=== PATIENT | female | born 1985 | race Caucasian/White ===

== ENCOUNTER 2017-09-30 15:59 | Emergency (ER) | payer OTHER ==
[~2017-09-30] VITALS: Ht 160 cm; Wt 81.6 kg
== END 2017-09-30 20:38 | disposition home or self-care (01) ==
LOC: ER 15:59
DX: O03.9 Complete or unspecified spontaneous abortion without complication (principal); K52.9 Noninfective gastroenteritis and colitis, unspecified; E86.0 Dehydration

== ENCOUNTER → 2017-10-03 | Emergency (ER) | payer OTHER ==
[~2017-10-03] VITALS: Ht 160 cm; Wt 81.6 kg
== END | disposition home or self-care (01) ==
LOC: ER 05:07
DX: O03.9 Complete or unspecified spontaneous abortion without complication (principal)

== ENCOUNTER 2018-02-07 12:03 | Emergency (ER) | payer OTHER ==
[~2018-02-07] VITALS: Ht 160 cm; Wt 81.6 kg
== END 2018-02-07 18:43 | disposition home or self-care (01) ==
LOC: ER 12:03
DX: O20.0 Threatened abortion (principal)

== ENCOUNTER 2019-06-23 18:02 | Emergency (ER) | payer OTHER ==
[~2019-06-23] VITALS: Ht 160 cm; Wt 85.7 kg
[2019-06-23] MEDS ORDERED: METROGEL-VAGINA70 GM VAG (22:16)
== END 2019-06-23 22:23 | disposition home or self-care (01) ==
LOC: ER 18:02
DX: O26.891 Other specified pregnancy related conditions, first trimester (principal); R10.2 Pelvic and perineal pain; Z34.01 Encounter for supervision of normal first pregnancy, first trimester

== ENCOUNTER 2019-11-19 14:21 | Outpatient (CLI) | payer OTHER ==
[~2019-11-19 14:21] MED LIST: METROGEL-VAGINA70 GM VAG
== END 2019-11-20 11:13 | disposition home or self-care (01) ==
LOC: OBS/DEL 14:21
DX: O26.893 Other specified pregnancy related conditions, third trimester (principal); R10.13 Epigastric pain; O26.843 Uterine size-date discrepancy, third trimester; O36.8193 Decreased fetal movements, unspecified trimester, fetus 3

== ENCOUNTER 2019-12-23 06:30 | Inpatient (IN) | payer OTHER ==
[~2019-12-23] VITALS: Ht 160 cm; Wt 94.3 kg
[2019-12-23] MEDS ORDERED: ASPIR 8181 MG PO (09:31)
[2019-12-23] MEDS ORDERED: INNOPRAN XL120 MG (09:32)
[2019-12-23] MEDS ORDERED: PRENATAL + DHA1 EAC1 PO (09:32)
== END 2019-12-25 10:53 | DRG 807 ==
LOC: LDR 06:30 → OB/GYN 06:30
PROVIDERS: ADMIT Specialist
PROC: 10E0XZZ Delivery of Products of Conception, External Approach (ICD-10-PCS; principal; 2019-12-23)
PROC: 0KQM0ZZ Repair Perineum Muscle, Open Approach (ICD-10-PCS; 2019-12-23)
PROC: 4A1HXCZ Monitoring of Products of Conception, Cardiac Rate, External Approach (ICD-10-PCS; 2019-12-23)
PROC: 4A033R1 Measurement of Arterial Saturation, Peripheral, Percutaneous Approach (ICD-10-PCS; 2019-12-23)
DX: O70.1 Second degree perineal laceration during delivery (principal); Z37.0 Single live birth; Z22.330 Carrier of Group B streptococcus; Z3A.40 40 weeks gestation of pregnancy

== ENCOUNTER 2020-01-26 18:50 | Emergency (ER) | payer OTHER ==
[~2020-01-26] VITALS: Ht 160 cm; Wt 83.0 kg
[~2020-01-26 18:50] MED LIST changes: +ASPIR 8181 MG PO; +INNOPRAN XL120 MG; +PRENATAL + DHA1 EAC1 PO
== END 2020-01-26 23:48 | disposition home or self-care (01) ==
LOC: ER 18:50
DX: R10.11 Right upper quadrant pain (principal)